=== PATIENT | female | born 1995 | race Caucasian/White ===

== ENCOUNTER → 2023-06-26 | Outpatient (CLI) | payer OTHER | END | disposition home or self-care (01) | LOC: NST 14:48 | PROVIDERS: ATTEND Obstetrics & Gynecology | DX: Z34.83 Encounter for supervision of other normal pregnancy, third trimester (principal) ==

== ENCOUNTER 2023-07-21 14:15 | Inpatient (IN) | payer OTHER ==
[~2023-07-21] VITALS: Ht 154.9 cm; Wt 3.2 kg
[2023-08-13] MEDS ORDERED: OXYTOCIN 500 ML IV ONE (07:30)
[2023-08-13] MEDS ORDERED: OBSTETRIX ONE1 EAC1 PO (07:48)
[2023-08-13] MEDS ORDERED: OXYTOCIN 10 UNITS/ML VIAL ONE ×2 (07:54→20:07)
[2023-08-13] MEDS ORDERED: AMPICILLIN SODIUM 2,000 MG VIAL ONE (07:55)
[2023-08-13] MEDS ORDERED: AMPICILLIN SODIUM 2,000 MG VIAL IV ONE (08:15)
[2023-08-13] MEDS ORDERED: AMPICILLIN SODIUM 1,000 MG in DEXTROSE 5 % IN WATER 100 ML IV SCH (09:00)
[2023-08-13 09:03] LABS: HEMATOCRIT 34.2 % (36.0-45.00); HEMOGLOBIN 11.5 g/dL (12.0-15.00); MEAN CELL VOLUME 81.4 fL (80.00-100.00); MEAN CORPUSCULAR HEMOGLOBIN 27.3 pg (27.00-32.0); MEAN CORPUSCULAR HGB CONC 33.6 g/dl (32.0-36.0); PLATELET COUNT 286 K/uL (150-450); RED CELL DISTRIBUTION WIDTH 17.2 % (11.5-14.5)
[2023-08-13 09:39] LABS: INR < 0.93; PARTIAL THROMBOPLASTIN TIME 25.6 SECONDS (22.0-34.0); PROTHROMBIN TIME 9.8 SECONDS (9.0-11.5)
[2023-08-13 09:55] LABS: ALBUMIN 2.7 gm/dL (3.4-5.0); BILIRUBIN TOTAL 0.28 mg/dL (0.3-1.2); CALCIUM 8.6 mg/dL (8.5-10.1); CREATININE SERUM 0.6 mg/dL (0.55-1.02); GFR 118.19; GLOBULINA 3.8 G/DL (2.4-3.5); POTASSIUM 4.41 mEq/L (3.5-5.1); TOTAL PROTEIN 6.5 gm/dL (6.4-8.2)
[2023-08-13] MEDS ORDERED: ERYTHROMYCIN BASE 1 GM TUBE OP ONE ×2 (16:12→22:15)
[2023-08-13] MEDS ORDERED: CHLORHEXIDINE GLUCONATE 120 ML BOTTLE TOP ONE (16:12)
[2023-08-13] MEDS ORDERED: OXYTOCIN 20 UNITS/1000ML RL PIGGYBAG IV ONE (16:13)
[2023-08-13] MEDS ORDERED: MORPHINE SULFATE 4 MG/ML VIAL IV ONE (18:45)
[2023-08-13] MEDS ORDERED: CEFOXITIN SODIUM 2,000 MG VIAL IV STA (19:55)
[2023-08-13] MEDS ORDERED: CITRIC ACID/SODIUM CITRATE 30 ML BLIST.PACK PO STA (19:55)
[2023-08-13] MEDS ORDERED: CITRIC ACID/SODIUM CITRATE 30 ML BLIST.PACK PO ONE (20:02)
[2023-08-13] MEDS ORDERED: CEFOXITIN SODIUM 2,000 MG VIAL IV ONE (20:02)
[2023-08-13] MEDS ORDERED: ERYTHROMYCIN BASE 3.5 GM OINT...G. OP ONE (20:07)
[2023-08-13] MEDS ORDERED: OXYTOCIN 10 UNITS/ML VIAL IV ONE (22:15)
[2023-08-13 22:26] LABS: ABG pCO2 48.2 mmHg (35-45)
[2023-08-13 22:27] LABS: BASE EXCESS -7.3 mmol/l; BICARBONATE 20.2 mmol/l (23-25); SaO2 16.6 %; Tco2 21.7 mmol/l; o2 21 %
[2023-08-14] MEDS ORDERED: OXYTOCIN 40 UNITS in RINGERS SOLUTION,LACTATED 1,000 ML IV ONE
[2023-08-14] MEDS ORDERED: RINGERS SOLUTION,LACTATED 1,000 ML IV SCH (00:45)
[2023-08-14] MEDS ORDERED: KETOROLAC TROMETHAMINE 30 MG VIAL IM ONE (01:00)
[2023-08-14 03:32] LABS: HEMATOCRIT 26.6 % (36.0-45.00); HEMOGLOBIN 8.8 g/dL (12.0-15.00); MEAN CELL VOLUME 81.6 fL (80.00-100.00); MEAN CORPUSCULAR HEMOGLOBIN 26.9 pg (27.00-32.0); MEAN CORPUSCULAR HGB CONC 33.2 g/dl (32.0-36.0); PLATELET COUNT 297 K/uL (150-450); RED BLOOD COUNT 3.27 M/uL (4.00-6.00)
[2023-08-14] MEDS ORDERED: OxyCODONE HCL 5 MG TABLET (ROXICODONE) PO SCH (08:01)
[2023-08-14] MEDS ORDERED: KETOROLAC TROMETHAMINE 10 MG TABLET PO PRN (08:15)
[2023-08-14] MEDS ORDERED: GABAPENTIN 300 MG CAPSULE PO SCH (09:00)
[2023-08-14] MEDS ORDERED: SIMETHICONE 125 MG CAPSULE PO SCH (09:00)
[2023-08-14] MEDS ORDERED: DOCUSATE CALCIUM 240 MG CAPSULE PO SCH (09:00)
[2023-08-14] MEDS ORDERED: IRON FUM,PS/FOLIC/BCOMP,C NO.9 1 CAP CAPSULE PO SCH (09:00)
[2023-08-15 12:54] LABS: MEAN CELL VOLUME 82.9 fL (80.00-100.00); MEAN CORPUSCULAR HGB CONC 33.3 g/dl (32.0-36.0); PLATELET COUNT 261 K/uL (150-450); RED BLOOD COUNT 2.31 M/uL (4.00-6.00); RED CELL DISTRIBUTION WIDTH 17.4 % (11.5-14.5)
[2023-08-15 12:57] LABS: HEMATOCRIT 19.2 % (36.0-45.00); HEMOGLOBIN 6.4 g/dL (12.0-15.00); MEAN CORPUSCULAR HEMOGLOBIN 27.7 pg (27.00-32.0)
[2023-08-16 11:56] LABS: HEMATOCRIT 23.7 % (36.0-45.00); MEAN CELL VOLUME 85.3 fL (80.00-100.00); MEAN CORPUSCULAR HGB CONC 34.3 g/dl (32.0-36.0); PLATELET COUNT 276 K/uL (150-450); RED BLOOD COUNT 2.78 M/uL (4.00-6.00); RED CELL DISTRIBUTION WIDTH 17.1 % (11.5-14.5)
[2023-08-16 11:57] LABS: HEMOGLOBIN 8.1 g/dL (12.0-15.00); MEAN CORPUSCULAR HEMOGLOBIN 29.1 pg (27.00-32.0)
== END 2023-08-16 15:29 | disposition home or self-care (01) | DRG 788 ==
LOC: OB/GYN 08-10 14:15 → LDR 08-13 07:15 → OB/GYN 08-13 21:52
PROVIDERS: Obstetrics & Gynecology Gynecology; Obstetrics & Gynecology Maternal & Fetal Medicine; ADMIT Obstetrics & Gynecology; ATTEND Obstetrics & Gynecology
PROC: 4A1HXCZ Monitoring of Products of Conception, Cardiac Rate, External Approach (ICD-10-PCS; 2023-08-13)
PROC: 10D00Z1 Extraction of Products of Conception, Low, Open Approach (ICD-10-PCS; principal; 2023-08-13 22:15)
DX: O33.8 Maternal care for disproportion of other origin (principal); O62.2 Other uterine inertia; Z3A.40 40 weeks gestation of pregnancy; Z37.0 Single live birth; Z20.822 Contact with and (suspected) exposure to COVID-19

== ENCOUNTER 2023-08-05 14:33 | Outpatient (CLI) | payer OTHER | END 2023-08-05 15:44 | disposition home or self-care (01) | LOC: NST 14:33 | PROVIDERS: ATTEND Obstetrics & Gynecology Maternal & Fetal Medicine | DX: Z34.83 Encounter for supervision of other normal pregnancy, third trimester (principal) ==